=== PATIENT | male | born 1995 | race Caucasian/White ===

== ENCOUNTER 2016-09-05 00:52 | Emergency (ER) | payer OTHER ==
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
--- NOTE | ~2016-09-05 | EKG ---
PATIENT: DEBBY MCCOLLUM UNIT #: [id number] Ventricular Rate: 78 BPM Atrial Rate: 78 BPM P-R Interval: 130 ms QRS Duration: 96 ms Q-T Interval: 366 ms QTC Calculation(Bezet): 417 ms P Crescent: 82 degrees Calculated R Crescent: 65 degrees Calculated T Crescent: 38 degrees Diagnosis Line: Sinus rhythm with marked sinus arrhythmia Diagnosis Line: Otherwise normal ECG Diagnosis Line: No previous ECGs available Diagnosis Line: Confirmed by TRISH BURCIAGA MD ([id number]) on Diagnosis Line: 09/05/2016 9:40:09 PM INTERPRETING MD: GUALBERTO APONTE
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
[~2016-09-05 00:52] MED LIST: IBUPROFEN PO
[2016-09-05 01:48] LABS: URINE SOURCE CLEAN CATCH
[2016-09-05 01:51] LABS: BASOPHIL# 0.1 X10e3 (0-0.3); BASOPHIL% 0.7 % (0-2.5); EOSINOPHIL# 0.2 X10e3 (0-0.7); EOSINOPHIL% 2.5 % (0.0-7.0); HEMOGLOBIN 14.4 gm/dL (13.0-16.0); LYMPHOCYTE# 1.2 X10e3 (1.0-3.5); LYMPHOCYTE% 12.8 % (17.0-45.0); MEAN CELL VOLUME 77.4 FL (83-96); MEAN CORPUSCULAR HEMOGLOBIN 25.3 PG (28-34); MEAN CORPUSCULAR HGB CONC 32.6 g/dL (30-36); MEAN PLATELET VOLUME 8.3 FL (6.5-11.5); MONOCYTE# 0.6 X10e3 (0-1.0); MONOCYTE% 6.1 % (3.0-12.0); NEUTROPHIL# 7.5 X10e3 (1.5-7.1); NEUTROPHIL% 77.9 % (40-75); PLATELET COUNT 378 X10e3 (140-420); RED BLOOD COUNT 5.68 X10e (3.90-5.60); RED CELL DISTRIBUTION WIDTH 15.6 % (11.0-15.5); WHITE BLOOD COUNT 9.7 X10e3 (4.0-10.5)
[2016-09-05 01:52] LABS: DIFF IND NO
[2016-09-05 01:53] LABS: URINE APPEARANCE CLOUDY; URINE BILIRUBIN NEG (NEG); URINE BLOOD 3+ (NEG); URINE COLOR YELLOW; URINE GLUCOSE NEG (NEG); URINE KETONE TRACE (NEG); URINE LEUKOCYTE ESTERASE NEG (NEG); URINE NITRATE NEG (NEG); URINE PH 5.5 (5-8); URINE PROTEIN 1+ (NEG); URINE SPECIFIC GRAVITY 1.028 (1.003-1.035)
[2016-09-05 01:55] LABS: URBCS1 AUWI INNUM /[HPF] (0-2); URINE BACTERIA AUWI NEG (NEGATIVE); URINE SQUAMOUS EPITHELIAL CELL NONE SEEN /[HPF]
[2016-09-05 01:57] LABS: CULTURE INDICATED? NO
[2016-09-05 02:01] LABS: POC - CKMB <1.0 ng/mL (0.0-7.9); POC - TROPONIN <0.05 ng/mL (<=0.05)
[2016-09-05 02:33] LABS: ALBUMIN SERUM 4.4 g/dL (3.5-5.0); BILIRUBIN,TOTAL 0.1 mg/dL (0.2-2.0); CALCIUM SERUM 8.9 mg/dL (8.4-10.2); CREATININE SERUM 1.1 mg/dL (0.6-1.4); GLOM FILT RATE Estimated 96.8 mL/min (>60); POTASSIUM 3.6 mmol/L (3.5-5.1); PROTEIN TOTAL SERUM 7.8 g/dL (6.0-8.3)
== END 2016-09-05 04:15 | disposition home or self-care (01) ==
LOC: CED 00:52
PROVIDERS: Emergency Medicine
DX: T14.8 Other injury of unspecified body region (principal); R31.9 Hematuria, unspecified; Z23 Encounter for immunization; F17.200 Nicotine dependence, unspecified, uncomplicated; V49.40XA Driver injured in collision with unspecified motor vehicles in traffic accident, initial encounter; Y92.410 Unspecified street and highway as the place of occurrence of the external cause
CPT/HCPCS: 36415; 70450; 71010; 72125; 73130; 74177; 80053; 81003; 82553; 83690; 84484; 85025; 90471; 90715; 93005; 99284; G0480; Q9967

== ENCOUNTER 2016-10-26 15:48 | Emergency (ER) | payer OTHER ==
[~2016-10-26] VITALS: Ht 180.3 cm; Wt 56.7 kg
--- NOTE | ~2016-10-26 | CT2 ---
[facility] A Service of [facility] RADIOLOGY TEXT RESULTS PATIENT: DEBBY MCCOLLUM LOCATION: [facility] : [birth year] UNIT #: [id number] AGE: [address]: Trish Hopper SEX: M ORDER DR: [id number] [address] [address] [id number] E MR#: [id number] Acc #: [id number] NAME: DEBBY MCCOLLUM : 1995 SEX: M STUDY DATE/TIME: 10/26/2016 19:52 UNIT: [facility] ROOM: STUDY DESCRIPTION: CT Abd and Pelv W Cont Attending Physician: Trish Hopper Pa-C Ordering Physician: Trish Hopper Pa-C Primary Care Physician: Jeramy Guerrier M.D. MEDICAL IMAGING REPORT This report is preliminary unless electronic signature is present. EXAM CT abdomen and pelvis with contrast 10/26/2016 HISTORY 20-year-old male with abdominal pain for 1 week. Fever, vomiting, diarrhea. COMPARISON CT abdomen and pelvis 09/05/2016. TECHNIQUE Helical scan performed through the abdomen and pelvis following administration of oral and IV contrast. Coronal and sagittal reformatted images. This CT examination was performed with one or more of the following radiation dose reduction techniques: automatic exposure control, adjustment of mA and/or kV according to patient size, and iterative reconstruction. FINDINGS Visualized lung bases are unremarkable. There is some mild periportal edema in the liver. Liver otherwise unremarkable. There is some edema in the gallbladder wall which is also nonspecific. Gallbladder slightly contracted. The spleen, pancreas, both adrenal glands, both kidneys are within normal limits. Abdominal aorta normal in course and caliber without dissection. There is again noted long-segment circumferential wall thickening of the distal ileum extending to the ileocecal junction. Findings suggest inflammatory bowel disease. Appendix is normal. Colon otherwise unremarkable. No free fluid or free air. Urinary bladder and prostate gland unremarkable. No free pelvic fluid. No acute bony abnormality. [facility] A Service of [facility] RADIOLOGY TEXT RESULTS PATIENT: DEBBY MCCOLLUM LOCATION: [facility] : 96 UNIT #: [id number] AGE: [address]: Trish Hopper PAC SEX: M ORDER DR: IMPRESSION 1. Long segment circumferential wall thickening of the distal ileum is again noted. This is similar in appearance to prior study from 09/05/2016. Findings may suggest inflammatory bowel disease in the appropriate clinical setting. No evidence of perforation or abscess. 2. Normal appendix. 3. Mild periportal edema and mild edema involving the gallbladder wall, nonspecific. Dictated by... Lucas Henderson M.D. THIS IS AN ELECTRONICALLY VERIFIED REPORT Lucas Henderson M.D. at 10/27/2016 3:59 PM KITTY/natalie TD: 10/27/2016 06:05 JOB #: [id number] MEDICAL IMAGING REPORT Page 1 of 1
[2016-10-26 16:37] LABS: BASOPHIL% 0.1 % (0-2.5); HEMATOCRIT 42.8 % (38.0-50.0); HEMOGLOBIN 14.1 gm/dL (13.0-16.0); LYMPHOCYTE# 0.6 X10e3 (1.0-3.5); LYMPHOCYTE% 10.5 % (17.0-45.0); MEAN CELL VOLUME 75.9 FL (83-96); MEAN PLATELET VOLUME 8.9 FL (6.5-11.5); MONOCYTE# 0.6 X10e3 (0-1.0); MONOCYTE% 11.1 % (3.0-12.0); NEUTROPHIL# 4.3 X10e3 (1.5-7.1); NEUTROPHIL% 78.3 % (40-75); PLATELET COUNT 173 X10e3 (140-420); RED BLOOD COUNT 5.63 X10e (3.90-5.60); RED CELL DISTRIBUTION WIDTH 15.6 % (11.0-15.5); WHITE BLOOD COUNT 5.5 X10e3 (4.0-10.5)
[2016-10-26 16:42] LABS: DIFF IND NO
[2016-10-26 16:56] LABS: ALBUMIN SERUM 3.6 g/dL (3.5-5.0); BILIRUBIN, DIRECT 0.1 mg/dL (0.0-0.2); BILIRUBIN,INDIRECT 0.2 mg/dL (0.0-0.9); BILIRUBIN,TOTAL 0.3 mg/dL (0.2-2.0); CALCIUM SERUM 8.1 mg/dL (8.4-10.2); CREATININE SERUM 1.2 mg/dL (0.6-1.4); GLOM FILT RATE Estimated 87.2 mL/min (>60); PROTEIN TOTAL SERUM 7.3 g/dL (6.0-8.3)
[2016-10-26 17:47] LABS: POTASSIUM 3.1 mmol/L (3.5-5.1)
[2016-10-26 18:04] LABS: URINE SOURCE CLEAN CATCH
[2016-10-26 18:10] LABS: URINE APPEARANCE CLEAR; URINE BLOOD 1+ (NEG); URINE COLOR YELLOW; URINE GLUCOSE NEG (NORM); URINE LEUKOCYTE ESTERASE NEG (NEG); URINE NITRATE NEG (NEG); URINE PROTEIN 1+ (NEG); URINE UROBILINOGEN 0.2 MG/DL (NORM)
[2016-10-26 18:17] LABS: URINE KETONE 2+ (NEG)
[2016-10-26 18:18] LABS: MICRO INDICATED? YES; URINE BILIRUBIN NEG (NEG)
[2016-10-26 18:20] LABS: AMPHETAMINE NEG (NEG); BARBITURATES NEG (NEG); BENZODIAZEPINES NEG (NEG); COCAINE NEG (NEG); MARIJUANA POS (NEG); OPIATES NEG (NEG); TRICYCLIC ANTIDEPRESSANTS NEG (NEG); U METHADONE NEG (NEG)
[2016-10-26 18:28] LABS: CULTURE INDICATED? NO; URINE BACTERIA NEG (NEG); URINE WBC 0-2 /[HPF] (0-5)
== END 2016-10-26 21:30 | disposition home or self-care (01) ==
LOC: SED 15:48
PROVIDERS: Physician Assistant Medical
DX: K58.0 Irritable bowel syndrome with diarrhea (principal); F17.210 Nicotine dependence, cigarettes, uncomplicated
CPT/HCPCS: 36415; 74177; 80048; 80076; 80307; 81003; 82150; 83690; 85025; 86308; 87045; 87177; 87209; 87427; 87493; 87651; 87899; 96360; 99284; J2405; Q9967

== ENCOUNTER 2016-10-27 11:51 | Emergency (ER) | payer OTHER ==
[~2016-10-27] VITALS: Ht 180.3 cm; Wt 56.7 kg
[2016-10-27 13:48] LABS: BASOPHIL% 0.2 % (0-2.5); EOSINOPHIL% 0.1 % (0.0-7.0); HEMATOCRIT 40.1 % (38.0-50.0); HEMOGLOBIN 12.9 gm/dL (13.0-16.0); LYMPHOCYTE# 0.7 X10e3 (1.0-3.5); LYMPHOCYTE% 13.6 % (17.0-45.0); MEAN CELL VOLUME 75.8 FL (83-96); MEAN CORPUSCULAR HEMOGLOBIN 24.5 PG (28-34); MEAN CORPUSCULAR HGB CONC 32.3 g/dL (30-36); MEAN PLATELET VOLUME 8.8 FL (6.5-11.5); MONOCYTE# 0.6 X10e3 (0-1.0); MONOCYTE% 11.7 % (3.0-12.0); NEUTROPHIL# 3.6 X10e3 (1.5-7.1); NEUTROPHIL% 74.4 % (40-75); PLATELET COUNT 147 X10e3 (140-420); RED BLOOD COUNT 5.29 X10e (3.90-5.60); RED CELL DISTRIBUTION WIDTH 15.8 % (11.0-15.5); WHITE BLOOD COUNT 4.9 X10e3 (4.0-10.5)
[2016-10-27 13:49] LABS: DIFF IND NO
[2016-10-27 14:12] LABS: ALBUMIN SERUM 2.9 g/dL (3.5-5.0); BILIRUBIN, DIRECT 0.1 mg/dL (0.0-0.2); BILIRUBIN,INDIRECT 0.6 mg/dL (0.0-0.9); BILIRUBIN,TOTAL 0.7 mg/dL (0.2-2.0); GLOM FILT RATE Estimated 108.6 mL/min (>60); POTASSIUM 3.2 mmol/L (3.5-5.1); PROTEIN TOTAL SERUM 6.2 g/dL (6.0-8.3)
[2016-10-27 15:03] LABS: URINE SOURCE CLEAN CATCH
[2016-10-27 15:19] LABS: URINE APPEARANCE CLEAR; URINE BLOOD TRACE (NEG); URINE COLOR DK YELLOW; URINE GLUCOSE NEG (NEG); URINE KETONE 3+ (NEG); URINE LEUKOCYTE ESTERASE 1+ (NEG); URINE NITRATE NEG (NEG); URINE PROTEIN 2+ (NEG); URINE SPECIFIC GRAVITY 1.043 (1.003-1.035)
[2016-10-27 15:22] LABS: URINE BACTERIA AUWI NEG (NEGATIVE); URINE SQUAMOUS EPITHELIAL CELL MOD /[HPF]
[2016-10-27 15:29] LABS: CULTURE INDICATED? NO; URINE BILIRUBIN POS (NEG)
[2016-10-27 15:30] LABS: URINE ICTOTEST POS (NEG)
== END 2016-10-27 15:16 | disposition home or self-care (01) ==
LOC: CED 11:51
PROVIDERS: Emergency Medicine
DX: K51.90 Ulcerative colitis, unspecified, without complications (principal)
CPT/HCPCS: 36415; 80048; 80076; 81003; 83690; 85025; 96361; 96374; 99284; J2405